=== PATIENT | male | born 1990 | race Caucasian/White ===

== ENCOUNTER 2025-06-14 14:37 | Emergency (ER) | payer BC, MEDICAID ==
[~2025-06-14] VITALS: Ht 180.3 cm; Wt 75.0 kg
[2025-06-14 14:47] VITALS: O2SAT 100
[2025-06-14 15:13] LABS: BASOPHILS % 0.4 % (0.0-2.0); EOSINOPHILS % 0.2 % (0.0-5.0); HEMATOCRIT. 40.4 % (42.0-52.0); HEMOGLOBIN. 14.1 g/dL (14.0-18.0); LYMPHOCYTES % 18.6 % (20.0-50.0); MEAN PLATELET VOLUME 7.1 fl (7.4-10.4); MONOCYTES % 7.1 % (2.0-8.0); NEUTROPHILS % 73.7 % (40.0-76.0); PLATELET 196 x1000/uL (130-400); RED BLOOD CELL COUNT 4.43 mill/uL (4.7-6.1); RED CELL DISTRIBUTION WIDTH 12.8 % (11.6-14.6)
[2025-06-14 15:23] LABS: CREATININE 1.0 mg/dL (0.6-1.3); UREA NITROGEN BLOOD 10 mg/dL (9-23)
[2025-06-14 15:25] LABS: ASPARTATE AMINOTRANSFERASE 24 IU/L (<34); BILIRUBIN DIRECT 0.3 mg/dL (<=3.0); BILIRUBIN TOTAL 1.5 mg/dL (0.1-1.0); PROTEIN TOTAL 6.9 g/dL (6.0-8.3)
[2025-06-14] MEDS: ONDANSETRON HCL 4MG/2ML INJ IV ONE (16:35)
[2025-06-14] MEDS: KETOROLAC 15MG/ML VIAL IV ONE (16:36)
[2025-06-14] MEDS: ACETAMINOPHEN 500MG TABLET PO ONE (16:42)
[2025-06-14] MEDS: SODIUM CHLORIDE 0.9% 1,000 ML IV ONE (16:42)
[2025-06-14 17:00] LABS: CLARITY URINE TURBID (CLEAR); COLOR URINE DARK YELLOW (YELLOW); GLUCOSE URINE NEGATIVE (NEGATIVE); KETONES URINE 1+ (NEGATIVE); LEUKOCYTE ESTERASE URINE NEGATIVE (NEGATIVE); NITRITE URINE NEGATIVE (NEGATIVE); OCCULT BLOOD URINE NEGATIVE (NEGATIVE); PH URINE 7.5 (4.5-8.0); PROTEIN URINE TRACE (NEGATIVE); SPECIFIC GRAVITY URINE 1.023 (1.005-1.030); UROBILINOGEN URINE 1.0 E.U./dL (0.2-1.0)
[2025-06-14] MEDS ORDERED: TAMS-54 MT (17:11)
[2025-06-14] MEDS ORDERED: ONDA-239 PO (17:11)
[2025-06-14 17:13] LABS: AMORPHOUS SEDIMENT URINE 1+ /lpf; BACTERIA URINE 4+; RBC URINE 0-2 /hpf (0-2); SQUAMOUS EPITHELIAL CELL URINE 1+ /lpf (RARE/1+); WBC URINE 0-2 /hpf (0-2)
[2025-06-14 17:59] VITALS: TEMP 37.1; O2SAT 100
[2025-06-14 18:00] VITALS: BP 132/70; PULSE 74; RESP 16
[2025-06-14] MEDS: HYDROCODONE/ACETAMINOPHEN 7.5/325MG TABLET PO ONE (18:00)
[2025-06-14] MEDS ORDERED: IBUP-2029 MT (19:21)
[2025-06-14] MEDS ORDERED: TOPUD MT (19:21)
== END 2025-06-14 18:12 | disposition home or self-care (01) ==
LOC: EDBD 14:38 → ER 14:38 → CMPBEDREQ 18:32
DX: N20.0 Calculus of kidney (principal); Z90.49 Acquired absence of other specified parts of digestive tract
CPT/HCPCS: 80076; 80048; 81003; 83690; 85025; 36415; 74176; 96361; 96374; 96375; 99285; J1885; J2405; Z7610 ×2; J7030